=== PATIENT | male | born 1980 ===

== ENCOUNTER 2017-07-13 08:22 | Emergency (ER) | payer SELFPAY ==
[2017-07-13 09:33] VITALS: BP 122/70
[2017-07-13] MEDS ORDERED: Ibuprofen TAB* 600 MG PO ONE (09:59)
--- NOTE | 2017-07-13 10:04 | RAD ---
HISTORY: Nose injury COMPARISONS: None VIEWS: 3, Rushing views of the face, bilateral coned down lateral views of the nasal bones FINDINGS: BONE DENSITY: Normal. BONES: There is a transverse minimally displaced fracture along the bridge of the nasal bones bilaterally JOINTS: There is no arthropathy. ALIGNMENT: There is no dislocation. SOFT TISSUES: Unremarkable. OTHER FINDINGS: None. IMPRESSION: TRANSVERSE MINIMALLY DISPLACED NASAL BONE FRACTURES
--- NOTE | 2017-07-13 11:02 | UC ---
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 Negative: Confusion, Memory Loss, Seizure, Dental Malocclusion, Neck Pain, Nausea, Vomiting - Allergies/Home Medications Allergies/Adverse Reactions: Allergies Allergy/AdvReac Type Severity Reaction Status Date / Time No Known Allergies Allergy Verified 07/13/17 09:33 PMH/Surg Hx/FS Hx/Imm Hx Previously Healthy: Yes - Surgical History Surgical History: None - Family History Known Family History: Negative: Diabetes - Social History Alcohol Use: Rare Substance Use Type: None Smoking Status (MU): Never Smoked Tobacco - Immunization History Most Recent Tetanus Shot: 2017 Review of Systems Constitutional: Negative Skin: Negative Eyes: Negative ENT: Other - nasal bone pain , nose bleed Respiratory: Negative Cardiovascular: Negative Gastrointestinal: Negative Neurovascular: Negative Is Patient Immunocompromised?: No All Other Systems Reviewed And Are Negative: Yes Physical Exam Triage Information Reviewed: Yes Appearance: Well-Appearing, No Pain Distress, Well-Nourished Vital Signs: Initial Vital Signs Temp 97.9 F 07/13/17 09:17 Pulse 67 07/13/17 09:17 Resp 24 07/13/17 09:17 BP 122/70 07/13/17 09:17 Vital Signs Reviewed: Yes Eyes: Positive: Conjunctiva Clear ENT: Positive: Normal ENT inspection, Hearing grossly normal, Pharynx normal, Other - nose: + swelling, abrasion tender, right deviation Neck: Positive: Supple, Nontender, No Lymphadenopathy Respiratory: Positive: Chest non-tender, Lungs clear, Normal breath sounds Cardiovascular: Positive: RRR, No Murmur, Pulses Normal Abdominal Exam: Normal Abdomen Description: Positive: Nontender, No Organomegaly, Soft Bowel Sounds: Positive: Present Musculoskeletal Exam: Normal Musculoskeletal: Positive: Strength Intact, ROM Intact, No Edema Neurological: Positive: Alert Skin Exam: Normal UC Physical Exam Vital Signs On Initial Exam: Initial Vitals Temp Pulse Resp BP 97.9 F 67 24 122/70 07/13/17 09:17 07/13/17 09:17 07/13/17 09:17 07/13/17 09:17 - Neurological Exam Neurological: Normal, Sensory/Motor Intact, Alert, Oriented to Person Place, Time, CN Intact II-III, Reflexes Intact, Normal Gait, Speech Normal Diagnostics - Laboratory Diagnostic Studies Completed/Ordered: nasal bone fracture Head Injury Course/Dx - Differential Dx/Diagnosis Provider Diagnoses: nasal bone fracute. concussion Discharge - Discharge Plan Condition: Stable Disposition: HOME Prescriptions: Ibuprofen TAB* [Motrin TAB* 600 MG] 600 mg PO Q6H PRN #20 tab PRN Reason: Pain Patient Education Materials: Nasal Fracture (ED), Concussion (ED) Print Language: SWEDISH Forms: *Work Release Referrals: Non Staff,Doctor [Primary Care Provider] - 5 Days
== END 2017-07-13 10:30 | disposition home or self-care (01) ==
LOC: UCCORT 08:22
DX: S02.2XXA Fracture of nasal bones, initial encounter for closed fracture (principal); S06.0X9A Concussion with loss of consciousness of unspecified duration, initial encounter; W30.89XA Contact with other specified agricultural machinery, initial encounter; Y93.9 Activity, unspecified; Y92.9 Unspecified place or not applicable
CPT/HCPCS: 70160; 99203; A9270-GY; G0463

== ENCOUNTER 2017-07-17 11:11 | Emergency (ER) | payer SELFPAY ==
[2017-07-17 12:09] VITALS: BP 132/78
--- NOTE | 2017-07-17 13:13 | UC ---
Epistaxis Nasal HPI - HPI Summary HPI Summary: PT SEEN HERE 07/13/17 AFTER FALLING OFF A TRACTOR AT WORK. XRAY SHOWED TRANSVERSE MINIMALLY DISPLACED NASAL BONE FRACTURE. PT RETURNS HERE STATING HE WAS ADVISED TO BE RE-CHECKED AND EVALUATED FOR SURGERY. PT IS [place] SPEAKING. DENIES ANY MILLER, DIZZINESS, NAUSEA, VISUAL DISTURBANCES. STATES HIS NASAL PAIN IS BETTER. NO PAIN OUTSIDE THE BRIDGE OF THE NOSE. IS ABLE TO BREATHE THROUGH BOTH NARES. NO NOSEBLEEDS SINCE INJURY. ABRASION IS SCABBED OVER. NO DRAINAGE OR SURROUNDING ERYTHEMA. 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 - CHIEF OF SURGERY - B[place]HE[place] Onset/Duration: Sudden Onset, Lasting Days, Still Present - BUT BETTER Timing: Constant Severity Initially: Moderate Severity Currently: Mild Pain Intensity: 2 Pain Scale Used: 0-10 Numeric - Allergies/Home Medications Allergies/Adverse Reactions: Allergies Allergy/AdvReac Type Severity Reaction Status Date / Time No Known Allergies Allergy Verified 07/17/17 11:57 PMH/Surg Hx/FS Hx/Imm Hx Previously Healthy: Yes - Surgical History Surgical History: None - Family History Known Family History: Negative: Diabetes - Social History Alcohol Use: Rare Substance Use Type: None Smoking Status (MU): Never Smoked Tobacco - Immunization History Most Recent Tetanus Shot: 2017 Review of Systems Constitutional: Negative Skin: Other - HEALING ABRASION Respiratory: Negative Cardiovascular: Negative Gastrointestinal: Negative Musculoskeletal: Other: - TENDER OVER BRIDGE OF NOSE Neurological: Negative All Other Systems Reviewed And Are Negative: Yes Physical Exam Triage Information Reviewed: Yes Appearance: Well-Appearing, No Pain Distress, Well-Nourished Vital Signs: Initial Vital Signs Temp 98.9 F 07/17/17 11:59 Pulse 74 07/17/17 11:59 Resp 16 07/17/17 11:59 BP 132/78 07/17/17 11:59 Pulse Ox 99 07/17/17 11:59 Vital Signs Reviewed: Yes Eyes: Positive: Conjunctiva Clear ENT: Positive: Hearing grossly normal, Pharynx normal, Other - HEALING ABRASION BRIDGE OF NOSE. MILDLY TENDER AND SWOLLEN Neck: Positive: Supple Respiratory: Positive: No respiratory distress, No accessory muscle use Cardiovascular: Positive: Pulses Normal Abdomen Description: Positive: Soft Neurological: Positive: Alert Psychological: Positive: Age Appropriate Behavior Epistaxis Nasal Course/Dx - Course Course Of Treatment: CALLED DR. SANCHEZ'S OFFICE AND SCHEDULED F/U APPT FOR THURSDAY AT 8:30AM. CT SCAN REQUESTED AND OBTAINED. ([facility] DOES NOT SEE WORKMAN'S COMP) - Differential Dx/Diagnosis Provider Diagnoses: NASAL FRACTURE Discharge - Discharge Plan Condition: Stable Disposition: HOME Patient Education Materials: Nasal Fracture (ED) Print Language: [place] Referrals: Alejo Sanchez MD [Medical Doctor] - (APPT 07/20/17 AT 8:30AM) Additional Instructions: YOU HAVE AN APPT WITH DR. SANCHEZ (ENT) ON THURSDAY MORNING AT 8:30AM (NEW PATIENT PAPERWORK FOLLOWED BY APPT). TAKE PRECAUTIONS TO AVOID ANY ACTIVITIES WHERE YOU ARE AT RISK OF REPEAT FACIAL TRAUMA. CT SCAN DONE TODAY TO FURTHER EVALUATE YOUR NASAL BONE FRACTURE.
--- NOTE | 2017-07-17 14:40 | RAD ---
INDICATION: Nasal fracture July 13, 2017. Reassessment. COMPARISON: July 13, 2017 radiographs. TECHNIQUE: Multidetector CT base of the skull through mandible without contrast. Multiplanar reformation. REPORT: Nondisplaced transverse bilateral nasal bone fractures with overlying soft tissue swelling. Solitary focus of punctate radiopaque debris on the skin surface for which clinical correlation is suggested. The orbital and maxillary sinus margins, zygomatic arches, lamina papyracea, base of the maxilla, and pterygoid plate are intact. The mandible is intact. Normal temporal mandibular joint alignment. Clear paranasal sinuses and nasal cavity. Negative for deviation of the nasal septum. Patent choana and unremarkable nasopharyngeal mucosal space contours. Clear mastoid air spaces. IMPRESSION: Bilateral nondisplaced nasal bone fractures with overlying soft tissue swelling without significant interval change. Solitary focus of punctate radiopaque debris on the skin surface for which clinical correlation is suggested.
== END 2017-07-17 14:29 | disposition home or self-care (01) ==
LOC: UCCORT 11:11
DX: S02.2XXD Fracture of nasal bones, subsequent encounter for fracture with routine healing (principal); X58.XXXD Exposure to other specified factors, subsequent encounter
CPT/HCPCS: 70486; 99211; G0463